=== PATIENT | male | born 1945 | race African-American/Black ===

== ENCOUNTER 2016-07-22 15:49 | Inpatient (IN) | payer OTHER ==
--- NOTE | ~2016-07-22 | OP ---
Record Of Operation [facility] [address] [place]. [address] NAME: PAULA ALVAREZ : 41 STATUS : ADM IN [facility]#: [id number] AGE: 71 ADM/REG DATE : 07/22/16 MR#: [id number] REPORT SERV DATE: 07/23/16 DICTATED BY: SHANIQUA MARQUEZ III DATE: 07/23/16 REPORT STATUS : Draft TRANSCRIBED BY: MODL DATE: 07/23/16 DATE OF PROCEDURE: 07/23/2016 PREOPERATIVE DIAGNOSIS: Retrocecal appendicitis. POSTOPERATIVE DIAGNOSIS: Inflammatory mass of the cecum, possible malignancy versus subacute or chronic retrocecal appendicitis. PROCEDURE: Laparoscopy with mobilization of right colon, followed by open right colectomy with resection of terminal ileum and primary ileocolonic anastomosis. SURGEON: Shaniqua Marquez M.D. ANESTHESIA: General with intubation. COMPLICATIONS: None. ESTIMATED BLOOD LOSS: 25 mL. SPECIMENS: Distal ileum and proximal to mid right colon including appendix. DRAINS: Freeland in subcutaneous tissue. LAP AND SPONGE COUNT: Correct x3. BRIEF HISTORY: This 71-year-old male had been admitted to the hospital emergently with a radiographic evidence for retrocecal appendicitis. The patient's symptoms were not completely typical in that his symptoms have been ongoing for one week. His pain was primarily in the flank. Based on the radiographic findings, it was felt that laparoscopic appendectomy, possible laparotomy, was indicated. This procedure, the risks, benefits, and alternatives, including but not limited to the risk for bleeding, infection, enterotomy, injury to abdominal structure, postop small bowel obstruction, ileus, incisional hernia, dehiscence, leakage or bleeding from the appendiceal stump requiring reoperation, ureteral injury, possible need for laparotomy, and unforeseen complications including deep venous thrombosis, pulmonary embolus, myocardial infarction, stroke, pneumonia, and , were fully and completely explained to the patient at length prior to surgery. The fact that this was a major operation with risk for major morbidity and mortality was explained as well as expected recovery with both open and laparoscopic procedures. The patient had questions, which were answered. He fully understood the risks and agreed to surgery as planned. FINDINGS: The patient had an inflammatory process involving the distal 2/3 of the appendix which was densely adherent to the lateral side wall and posterior wall of the cecum. There was inflammatory mass or hard mass associated with this process making the appendix inseparable from the colon. This was of concern clinically for possible malignancy. Based on this intraoperatively, it was decided to proceed with a partial right colectomy. This could not be done laparoscopically because of dense adhesions between the colon and the Record Of Operation [facility] [address] [facility]. [address] NAME: PAULA ALVAREZ : 41 STATUS : ADM IN PAT#: [id number] AGE: 71 ADM/REG DATE : 07/22/16 MR#: [id number] REPORT SERV DATE: 07/23/16 DICTATED BY: SHANIQUA MARQUEZ III DATE: 07/23/16 REPORT STATUS : Draft TRANSCRIBED BY: MATTHEW DATE: 07/23/16 pelvic sidewall and retroperitoneum making the procedure extremely difficult and unsafe to perform laparoscopically. For this reason, mobilization of the right colon as much as possible to perform laparoscopically and the remainder of the procedure was completed through an open incision. The procedure was complicated and the length of procedure was increased by 100% for these reasons, and therefore modifier 22 was added to the procedure code. PROCEDURE IN DETAIL: After being appropriately identified and after discussing the risks of surgery with the patient again in the preoperative area, he was taken to the operating room and placed in the supine position on the operating room table. General anesthesia was administered. He was intubated without difficulty. The abdomen was prepped and draped sterilely in the usual fashion. After an appropriate "time-out" per JCAHO standards, a small transverse incision was made below the umbilicus. The skin and fascia on either sides were elevated with towel clips. A Veress needle was placed through the incision into the peritoneal cavity. Correct position of the needle in the peritoneal cavity was confirmed by hanging drop test. The abdominal cavity was then insufflated to about 13 mmHg of carbon dioxide. Correct position of air in the peritoneal cavity was confirmed by palpation. The Veress needle was replaced with a 12 mm trocar. The laparoscope was placed through this. A 5 mm trocar was then placed in the midline, midway between the umbilicus and xiphoid process, under direct vision with the laparoscope. Another 5 mm trocar was placed in the midline, just above the pubis, also under direct vision with the laparoscope. The patient was rotated slightly to his left. The right lower quadrant was identified. There was a severe inflammatory process centered around the cecum. There were dense adhesions of inflammatory nature and fibrous nature between the cecum and the lateral sidewall. There was no evidence for carcinomatosis, but there was clearly a phlegmon or mass centered around the cecum and continuing laterally and posteriorly. The appendix was identified but was densely adherent to the cecum. The appropriate instruments were placed through the trocars. Using sharp dissection, the peritoneal reflection to the right colon was divided along the line of Toldt from the cecum to the hepatic flexure. This was done very carefully. The inflammatory process was very hard around the cecum and there were dense adhesions between the cecum and the pelvic sidewall. Further mobilization as much as possible was done. The cecum was densely adherent to the retroperitoneum posteriorly. Because of the adhesions and attachment of the cecum posteriorly to the retroperitoneum, it was my judgment that it was not be safe to proceed laparoscopically. The entire area was markedly inflamed and thickened with marked distortion of the normal anatomy. I was very concerned about possible injury to the right ureter. For this reason, I felt that it would be safest to proceed through an open incision. The trocars were removed. A midline incision was then made from the navel to the pubis. The incision was continued through the subcutaneous tissue. Hemostasis was controlled with cautery. The incision was continued through the fascia. The abdominal cavity was entered. The above findings were confirmed. The right colon was further mobilized. There was an inflammatory mass or phlegmon involving the cecum and the appendix. They were densely adherent to one another. It was of concern Record Of Operation [address] [place]. [address] NAME: PAULA ALVAREZ : 41 STATUS : ADM IN PAT#: [id number] AGE: 71 ADM/REG DATE : 07/22/16 MR#: [id number] REPORT SERV DATE: 07/23/16 DICTATED BY: SHANIQUA MARQUEZ III DATE: 07/23/16 REPORT STATUS : Draft TRANSCRIBED BY: MODL DATE: 07/23/16 to me that this might represent a primary malignancy of the appendix or the cecum and therefore, partial right colectomy was required. We selected a point for division of terminal ileum several centimeters proximal to the ileocecal valve. A window was made in the mesentery of the ileum at this point and a LEATHA stapler was used about the ileum at this point. The mid right colon was then divided distal to the inflammatory mass. This was done using the LEATHA stapler. The mesentery to this portion of the right colon and terminal ileum was then divided using Harmonic scalpel, along the base of the mesentery. The terminal ileum and right colon was thus removed and sent to Pathology and interpreted as being consistent with a benign process. We then performed a [id number] anastomosis between the divided terminal ileum and distal right colon. This was performed by aligning the small bowel with antimesenteric border of the colon with interrupted 3-0 silk sutures. A small opening was then made in the antimesenteric border of the small bowel and corresponding antimesenteric border of the colon. A LEATHA stapler was placed through this and fired. The defect created by the stapler was then closed with a TA-60 stapler. This staple line was oversewn with interrupted 3-0 silk sutures. The "crotch" of the anastomosis was secured with 3-0 silk sutures. The mesenteric defect was closed with a running 3-0 silk suture. Upon completion of this, the anastomosis was widely patent to palpation. It was not twisted or kinked in any way. It was not under any tension. The right ureter was identified and noted to be intact and not injured. The right lower quadrant was irrigated copiously with saline. Hemostasis was assured. The anastomosis was reduced back in the abdominal cavity. The fascia of the incision was closed with a running looped #1 PDS suture. Subcutaneous tissue was closed with a running 3-0 chromic suture over a Freeland drain which was brought through the inferior aspect of incision. The skin incision were closed with running subcuticular 4-0 Monocryl stitches. Dressings were applied. Anesthesia was reversed. The patient was taken to the recovery room in stable condition. He tolerated the procedure well. He had no family here to discuss results of surgery. The patient will remain in the hospital for postoperative care. JUANA/MATTHEW Shaniqua Marquez III, M.D. / [id number] CC: Shaniqua Marquez III, M.D.
--- NOTE | ~2016-07-22 | HP ---
History And Physical [place] [id number] [place]. [address] NAME: PAULA FRAIRE : 41 STATUS : ADM IN [facility]#: [id number] AGE: 71 ADM/REG DATE : 07/22/16 MR#: [id number] REPORT SERV DATE: 07/23/16 DICTATED BY: SHANIQUA MARQUEZ III DATE: 07/23/16 REPORT STATUS : Draft TRANSCRIBED BY: MODRaphael DATE: 07/23/16 DATE OF ADMISSION: 07/22/2016 ADDENDUM: Mr. Fraire continues to complain primarily of right flank pain. His clinical exam is unchanged. The patient has radiographic evidence for possible retrocecal appendicitis. Although, his clinical exam is atypical for appendicitis, his radiographic finding is of concern. Based on this, I feel the patient has sufficient evidence to proceed with laparoscopic appendectomy, possible laparotomy. We will schedule this to be done today for him. This procedure, i.e. laparoscopic appendectomy, possible laparotomy, the risks, benefits, and alternatives, including but not limited to the risk for bleeding, infection, enterotomy, injury to any abdominal structure, postop small bowel obstruction, ileus, incisional hernia, dehiscence, ureteral injury, appendiceal stump leak or bleed requiring reoperation, possible need for laparotomy, especially in a situation retrocecal appendicitis and unforeseen complications including deep venous thrombosis, pulmonary embolus, myocardial infarction, stroke, pneumonia, and have been explained to the patient. His questions have been answered. He understands the risks and agrees to the surgery as planned. JUANA/MATTHEW Shaniqua Marquez III, M.D. / [id number] CC: Shaniqua Marquez III, M.D.
--- NOTE | ~2016-07-22 | OP ---
Record Of Operation [facility] [address] [place]. [address] NAME: PAULA ALVAREZ : 41 STATUS : ADM IN [facility]#: [id number] AGE: 71 ADM/REG DATE : 07/22/16 MR#: [id number] REPORT SERV DATE: 07/28/16 DICTATED BY: GABRIEL GONZALEZ DATE: 07/28/16 REPORT STATUS : Draft TRANSCRIBED BY: MODL DATE: 07/28/16 DATE OF PROCEDURE: DIAGNOSIS: Cardiac arrest. PROCEDURE: Endotracheal intubation. DESCRIPTION: Code blue in process. During a pulse check without sedation, I took a no. 8 ET tube and a MAC 3 blade and was able to get a grade one view of vocal cords and placed an endotracheal tube. Got good color change on the CO2 detector and bilateral breath sounds and mist in the ET tube. No complications. No blood loss. CEP/MODL Gabriel Gonzalez DO / [id number] CC: Abdirahman Zamorano III, M.D.
--- NOTE | ~2016-07-22 | HP ---
History And Physical [place] [address] [facility] [place]. [address] NAME: PAULA ALVAREZ : 41 STATUS : ADM IN [facility]#: [id number] AGE: 71 ADM/REG DATE : 07/22/16 MR#: [id number] REPORT SERV DATE: 07/23/16 DICTATED BY: SHANIQUA MARQUEZ III DATE: 07/22/16 REPORT STATUS : Draft TRANSCRIBED BY: MODRaphael DATE: 07/22/16 DATE OF ADMISSION: 07/22/2016 HISTORY OF PRESENT ILLNESS: This 71-year-old male who was admitted to the hospital emergently with right flank pain and abdominal pain. The patient complains of a one-week history of vague illness consisting of right flank pain and lower abdominal pain. The patient states that the pain is worse when he sits up. The patient has had no nausea or vomiting. He has had no fever or chills. The patient states that the symptoms began at least one week ago. He has had some mild diarrhea. He has no prior history of similar symptoms. The patient presented to the emergency room and a CT scan of the abdomen and pelvis was performed, which suggested possible appendicitis. The patient has a remote history of gastric lymphoma. This apparently was treated with chemotherapy only many years ago. His history is somewhat vague regarding this. PAST MEDICAL HISTORY: 1. History of gastric lymphoma as above. 2. History of alcohol abuse with the patient drinking several pints daily. 3. History of tobacco abuse. FAMILY HISTORY: Unremarkable. REVIEW OF SYSTEMS: The patient complains of a low-grade fever and coughing. His pain is primarily in the right flank. ALLERGIES: NONE. MEDICATIONS: None regularly. PHYSICAL EXAMINATION: GENERAL: This is a male who appears comfortable and in absolutely no discomfort. He is alert and oriented x3. VITAL SIGNS: Blood pressure 114/67, temperature 98.3, and pulse 78. HEENT: Unremarkable. Cranial nerves II through XII are normal. LUNGS: Clear. CARDIAC: Normal. ABDOMEN: Soft and nontender. No guarding. No peritoneal signs. Normal bowel sounds. Flanks are normal with no point tenderness. EXTREMITIES: Normal without edema. LABORATORY DATA: White blood cell count is completely normal at 10.0. Hematocrit is normal. Electrolytes are normal. Glucose normal. Liver enzymes are normal except for slight elevation of alkaline phosphatase at 160. CT scan of the abdomen and pelvis, which I have reviewed shows a thickened appearance of the distal gastric body and antrum, possibly due to History And Physical [address] [place]. [address] NAME: PAULA ALVAREZ : 41 STATUS : ADM IN PAT#: [id number] AGE: 71 ADM/REG DATE : 07/22/16 MR#: [id number] REPORT SERV DATE: 07/23/16 DICTATED BY: SHANIQUA MARQUEZ III DATE: 07/22/16 REPORT STATUS : Draft TRANSCRIBED BY: MATTHEW DATE: 07/22/16 under distention, but no definite mass seen. There is noted to be a thickened tubular structure in the retrocecal region in the right pelvis, 11 mm in size with infiltrations, concerning for thickened inflamed appendix. ASSESSMENT: 1. A 71-year-old male with one-week history of right flank pain and abdominal pain, possible atypical appendicitis. 2. Remote history of gastric lymphoma. 3. History of alcohol abuse. PLAN: The patient is stable at this time with no evidence for peritonitis clinically. His white blood cell count is normal. The patient's symptoms are somewhat inconsistent with acute appendicitis based on normal clinical exam and normal white blood cell count with an illness, which has been ongoing for one week. The patient will be admitted to the hospital, started on parenteral fluids, bowel rest, and antibiotics empirically. I will repeat the patient's clinical exam tomorrow. Appendectomy may be required depending on the patient's clinical course. Again, I have explained to the patient that he has radiographic evidence for possible appendicitis, but clinically his exam does not support this. This plan has been explained to the patient. His questions have been answered. He understands and agrees to this plan. JUANA/MATTHEW Shaniqua Marquez III, M.D. / [id number] CC: Shaniqua Marquez III, M.D.
--- NOTE | ~2016-07-22 | DS ---
Discharge Summary [facility] [address] . [address] NAME: PAULA ALVAREZ : 41 STATUS : DIS IN PAT#: [id number] AGE: 71 ADM/REG DATE : 07/22/16 MR#: [id number] REPORT SERV DATE: 08/18/16 DICTATED BY: SHANIQUA MARQUEZ III DATE: 08/17/16 REPORT STATUS : Draft TRANSCRIBED BY: MATTHEW DATE: 08/17/16 Data Collection from hospitalization DISCHARGE DIAGNOSES: 1. Inflammatory mass of the cecum, possible malignancy versus subacute or chronic retrocecal appendicitis. 2. Tobacco and alcohol abuse. 3. History of gastric lymphoma. 4. Hepatitis C. 5. Tobacco use. 6. Chronic obstructive pulmonary disease. CONSULTATION: Dr. Gabriel Gonzalez. PROCEDURES PERFORMED: 1. Laparoscopy with mobilization of right colon, followed by open right colectomy with resection of terminal ileum and primary ileocolonic anastomosis, 07/23/2016. 2. Endotracheal intubation, 07/28/2016. 3. CT scan of the abdomen and pelvis with contrast, 07/22/2016. 4. GI bleeding study, 07/28/2016. PATHOLOGY: Right colon resection, including terminal ileum and appendix-acute and chronic appendicitis with extensive adhesions to cecum, status of margins-free, no malignancy or dysplasia. Mesenteric lymph nodes (8)-no specific microscopic abnormality. DISCHARGE MEDICATIONS: Percocet 7.5/325 one tablet three times a day as instructed. CONDITION AT DISCHARGE: Stable. DISPOSITION: The patient was discharged to [facility] on a mechanical soft diet with activities as instructed. He would follow up with me, 08/12/2016 and follow up with his primary care provider as needed. HOSPITAL COURSE: This is a 71-year-old man, who presented to the hospital emergently with right flank pain and abdominal pain. He had complained of a one-week history of vague illness and consisting of right flank pain and lower abdominal pain. The patient said that the pain was worse when he sits up. The patient had no nausea or vomiting. He had had no fevers or chills. The patient said that the symptoms began at least one week prior to this admission. He had had some mild diarrhea. He had no prior history of similar symptoms. He presented to the emergency room and a CT scan of the abdomen and pelvis suggested possible appendicitis. The patient has a history of gastric lymphoma. This apparently was treated with chemotherapy many years ago. His history was somewhat vague regarding this. White blood cell count was 10. Electrolytes were normal. Liver enzymes were normal, except for slight elevation of alkaline phosphatase at 160. Glucose was normal. The patient was felt to be stable at this time with no evidence for peritonitis clinically. His symptoms were somewhat inconsistent with acute appendicitis based on normal clinical exam and normal white blood cell count with an illness, which had been ongoing for about one week. He was admitted to the hospital at this time for further evaluation and treatment. Discharge Summary [place] [id number] [address] NAME: PAULA ALVAREZ : 41 STATUS : DIS IN [facility]#: [id number] AGE: 71 ADM/REG DATE : 07/22/16 MR#: [id number] REPORT SERV DATE: 08/18/16 DICTATED BY: SHANIQUA MARQUEZ III DATE: 08/17/16 REPORT STATUS : Draft TRANSCRIBED BY: MATTHEW DATE: 08/17/16 Upon admission, empiric antibiotics were started. He was placed on bowel rest. Parental fluids were started. It was felt that an appendectomy may be required depending on the patient's clinical course. It was explained to the patient that he had radiographic evidence for possible appendicitis, but clinically, his exam did not support this. The following day, it was felt that based on the radiographic findings that laparoscopic appendectomy and possible laparotomy was indicated. He was taken to the operating room, where he underwent the above-mentioned procedure. He tolerated this well and there were no complications. On postop day one, he had no new complaints. He was alert and comfortable. He was afebrile. Clear liquids were started. The Truj[place] catheter was removed. On the , he said that he was feeling well. He was tolerating clear liquids. He remained afebrile. Full liquids were started. He was evaluated by Physical Therapy. Over the next couple of days, he did have some incisional pain. He also had some constipation. He continued to tolerate liquids. Dulcolax was given. On 07/27/2016, he had some dizziness and fatigue. His blood pressure had decreased. He had three bright red blood stools. His H and H had decreased. He was transfused. O2 saturation was 98% on room air. On 07/28/2016, he was seen by Dr. Gabriel Gonzalez. Apparently, the patient was getting up with the nurse's assistance to the bedside commode and developed some bleeding from his bottom in the bedside commode. A code blue was called in the middle of the night. Initial rhythm was pulseless electrical activity arrest. Approximately, 15 minutes of CPR was provided before the patient had return of spontaneous circulation. Intubation was performed during the actual code. He was transferred to the MICU on the ventilator. He started waking up and moving his extremities. He was sedated with propofol. Cardiac enzymes were going to be checked as well as 2D echocardiogram. A PICC line was inserted. On 07/29/2016, he was still intubated. He had no further blood per rectum. Supportive care continued. Protonix was increased. SCDs remained in place. He was extubated. On the , Trujillo catheter had been removed. He was started on full liquids. Leukocytosis was resolving. His diet was advanced. He was transferred to the floor. On the , he had no new complaints. He had no nausea or vomiting. He had no further blood per rectum. Over the next couple of days, he continued to feel well. He wanted to go home. Discharge planning was performed. He did have some abdominal pain. He did have a bowel movement. On 08/05/2016, his incisions were healing well. Discharge instructions were given. Due to his improved and stable condition, he was discharged to [facility] with the above- stated instructions. Information collected by: Zully Hampton I submit the above information as my discharge summary. NAT/MATTHEW Shaniqua Marquez III, M.D. / [id number] Discharge Summary [address] [address] NAME: PAULA ALVAREZ : 41 STATUS : DIS IN [facility]#: [id number] AGE: 71 ADM/REG DATE : 07/22/16 MR#: [id number] REPORT SERV DATE: 08/18/16 DICTATED BY: SHANIQUA MARQUEZ III DATE: 08/17/16 REPORT STATUS : Draft TRANSCRIBED BY: MODL DATE: 08/17/16 CC: Shaniqua Marquez III, M.D. [facility]
--- NOTE | ~2016-07-22 | CN ---
Consultation Report [facility] [address] [place]. [address] NAME: PAULA ALVAREZ : 41 STATUS : ADM IN [facility]#: [id number] AGE: 71 ADM/REG DATE : 07/22/16 MR#: [id number] REPORT SERV DATE: 07/28/16 DICTATED BY: GABRIEL GONZALEZ DATE: 07/28/16 REPORT STATUS : Draft TRANSCRIBED BY: MODL DATE: 07/28/16 DATE OF CONSULTATION: A 71-year-old male, admitted on 07/22/2016 because of right abdominal flank pain. Turned out to be appendicitis and he was taken back to the operating room on 07/23/2016 for a laparoscopic appendectomy and a right hemicolectomy. Surgery was uneventful and he was having routine postoperative care. He was having some bleeding problems the day before and then last night. A code blue was called in the middle of the night, 07/28/2016. Initial rhythm was pulseless electrical activity arrest. Approximately, 15 minutes of CPR was provided to the patient before he got return of spontaneous circulation. I performed intubation during the actual code, which is dictated under a separate report. Dr. Zamorano happened to be in the room when I arrived for the code blue. This was his patient. He was just starting daytime rounds. Apparently, the nurse was getting the patient up to the bedside commode, and the patient was having some bleeding from his bottom in the bedside commode when he went out. His hemoglobin the day prior was 8.3, but had been trending down the previous day or two. His i-STAT shows ABG was okay, but his hematocrit was very low at 15 and his hemoglobin was unregistrable. I ordered 1 unit of O- negative blood to be transfused immediately. We obtained the EKG in the room on the floor, which was on . We suggested a new left bundle branch block. I called Cardiology and discussed with Dr. Tsang by phone and explained the situation. If this was a new coronary event causing him to go out, he would not be a very good left heart catheterization candidate given his bleeding. So, we both opted to treat him medically and they would consult in the morning. The patient was transferred to the MICU bed 4 on the ventilator. He started waking up and moving all extremities. He is sedated with propofol. REVIEW OF SYSTEMS: Unable to be obtained. PAST MEDICAL HISTORY: Hepatitis C, COPD, gastric cancer, medical port for chemotherapy in the past. ALLERGIES: NO KNOWN DRUG ALLERGIES. MEDICATIONS: Reviewed. FAMILY HISTORY: Unknown. PHYSICAL EXAMINATION: VITAL SIGNS: Per nursing flow sheet. GENERAL: Critically ill, moving all extremities in the MICU. ENT: Normocephalic, atraumatic. Right pupil is reactive. Left pupil appears somewhat hazy, so I was not sure if he had some type of surgery in the past because I had hard time seeing his left pupil whether it is from abnormal reflection or that is just how it looks in him, I am not clear at this point. NECK: Trachea midline. No palpable lymph nodes. Consultation Report [address] [place]. [address] NAME: PAULA ALVAREZ : 41 STATUS : ADM IN [facility]#: [id number] AGE: 71 ADM/REG DATE : 07/22/16 MR#: [id number] REPORT SERV DATE: 07/28/16 DICTATED BY: GABRIEL GONZALEZ DATE: 07/28/16 REPORT STATUS : Draft TRANSCRIBED BY: MATTHEW DATE: 07/28/16 HEART: Tachycardic, regular. LUNGS: Clear anteriorly. GI: Postsurgical dressing. Abdomen is soft. : [place] catheter is being placed. EXTREMITIES: No edema or cyanosis. NEURO: Moves all extremities voluntarily by the time I am going to move him to the ICU. LABORATORY DATA: Reviewed in the chart. ASSESSMENT AND PLAN: 1. Pulseless electrical activity, cardiac arrest. 2. Gastrointestinal bleed-acute. 3. New left bundle branch block-possible acute myocardial infarction. 4. Status post right hemicolectomy and appendectomy. 5. Acute blood loss anemia. 6. Chronic obstructive pulmonary disease. 7. Ventilator management with settings placed in chart. We will recheck ABG in an hour. Start propofol for sedation. Cardiology consult case was discussed with Dr. Tsang by phone. I also discussed the case with Dr. Zamorano at the bedside. We will get a 2D echocardiogram. Check cardiac enzymes. Also, other labs were ordered. 1 unit of O- negative blood was ordered until we get a confirmation on the rest of the blood work. Forty five minutes of critical care time. CEP/MODL Gabriel Gonzalez DO / [id number] CC: Abdirahman Zamorano III, M.D.
[~2016-07-22 15:49] MED LIST: ASAB PO; FERROUS SULF325 M1 PO; IBUPROFEN; MONODOX100 MG PO; MUCUS RELIEF OR; PR25 PO; PRIN20 PO; PT DENIES MEDS; REGLAN10 MG OR; SENN PO; TEMAZEPAM15 MG OR; [UNRECOGNIZED DRUG - OTHER]
[2016-07-22 16:16] LABS: BASOPHILS 0.4 %; BASOPHILS ABSOLUTE 0.04 10/3/uL (0.0-0.16); EOSINOPHILS 2.4 %; EOSINOPHILS ABSOLUTE 0.24 10/3/uL (0.0-0.53); HEMATOCRIT 38.5 % (40.0-51.0); HEMOGLOBIN 13.3 g/dL (13.6-17.8); IMMATURE GRANULOCYTES 0.2 %; IMMATURE GRANULOCYTES ABSOLUTE 0.02 10/3/uL (0.0-0.11); LYMPHOCYTES 31.2 %; LYMPHOCYTES ABSOLUTE 3.12 10/3/uL (0.67-4.30); MEAN CORPUS HGB CONC 34.5 g/dL (32.0-36.0); MEAN CORPUSCULAR HEMOGLOB 29.7 pg (26.0-34.0); MEAN CORPUSCULAR VOLUME 85.9 fL (80-100); MEAN PLATELET VOLUME 10.8 fL (9.2-13.0); MONOCYTES 8.3 %; MONOCYTES ABSOLUTE 0.83 10/3/uL (0.21-1.20); NEUTROPHILS 57.5 %; NEUTROPHILS ABSOLUTE 5.76 10/3/uL (2.02-8.40); RBC DISTRIBUTION WIDTH 16.2 % (12.0-16.0); RED CELL COUNT 4.48 10/6/uL (4.7-6.1)
[2016-07-22 16:21] LABS: ER CBC TAT 0 Hrs 11 Mins; MANUAL DIFF NO %; PLATELET COUNT 334 10/3/uL (150-400)
[2016-07-22 16:30] LABS: A/G RATIO 0.8 (0.7-1.9); ALBUMIN 3.3 G/DL (3.5-5.0); BUN (BLOOD UREA NITROGEN) 11 MG/DL (6-23); CALCIUM, SERUM 9.5 MG/DL (8.5-10.4); CHLORIDE, SERUM 102 MMOL/L (96-112); CO2 (CARBON DIOXIDE) 29 MMOL/L (24-34); CREATININE 0.67 MG/DL (0.70-1.30); GFR AFRICAN AMERICAN 110 ML/MIN (>=60); GFR NON AFRICAN AMERICAN 95 ML/MIN (>=60); GLOBULIN 4.3 G/DL (2.5-4.1); POTASSIUM, SERUM 3.9 MMOL/L (3.5-5.3); SGOT(AST) 51 U/L (5-40); SGPT(ALT) 39 U/L (5-65); SODIUM, SERUM 139 MMOL/L (135-148); TOTAL BILIRUBIN 0.7 MG/DL (0-1.2); TOTAL PROTEIN 7.6 G/DL (6.0-8.5)
[2016-07-22 16:31] LABS: ALKALINE PHOSPHATASE 160 U/L (45-117); GLUCOSE, SERUM 108 MG/DL (60-99)
[2016-07-22 20:48] LABS: ASCORBIC ACID (UR NOT ORDER) NEG (NEG); BILIRUBIN, URINE NEGATIVE (NEG); ER URINALYSIS TAT 0 Hrs 08 Mins; KETONE, URINE TRACE MG/DL (NEG); LEUKOCYTE ESTERASE(NOT OR NEG (NEG); NITRITE (URINE) NEG (NEG); WBC (NOT ORDERED) (RFLEX) < 1 (0-5)
[2016-07-22] MEDS ORDERED: *DENIES (20:54)
[2016-07-23 07:01] LABS: BASOPHILS 0.3 %; BASOPHILS ABSOLUTE 0.03 10/3/uL (0.0-0.16); EOSINOPHILS 2.5 %; EOSINOPHILS ABSOLUTE 0.24 10/3/uL (0.0-0.53); HEMATOCRIT 34.9 % (40.0-51.0); HEMOGLOBIN 11.9 g/dL (13.6-17.8); IMMATURE GRANULOCYTES 0.2 %; IMMATURE GRANULOCYTES ABSOLUTE 0.02 10/3/uL (0.0-0.11); LYMPHOCYTES 35.6 %; LYMPHOCYTES ABSOLUTE 3.39 10/3/uL (0.67-4.30); MEAN CORPUS HGB CONC 34.1 g/dL (32.0-36.0); MEAN CORPUSCULAR HEMOGLOB 29.2 pg (26.0-34.0); MEAN CORPUSCULAR VOLUME 85.5 fL (80-100); MEAN PLATELET VOLUME 10.9 fL (9.2-13.0); MONOCYTES 8.9 %; MONOCYTES ABSOLUTE 0.85 10/3/uL (0.21-1.20); NEUTROPHILS 52.5 %; NEUTROPHILS ABSOLUTE 4.99 10/3/uL (2.02-8.40); PLATELET COUNT 306 10/3/uL (150-400); RBC DISTRIBUTION WIDTH 16.4 % (12.0-16.0); RED CELL COUNT 4.08 10/6/uL (4.7-6.1); WHITE BLOOD CELLS 9.5 10/3/uL (4.5-10.5)
[2016-07-23 07:02] LABS: MANUAL DIFF NO %
[2016-07-23 07:03] LABS: BUN (BLOOD UREA NITROGEN) 11 MG/DL (6-23); CALCIUM, SERUM 8.8 MG/DL (8.5-10.4); CHLORIDE, SERUM 108 MMOL/L (96-112); CO2 (CARBON DIOXIDE) 27 MMOL/L (24-34); CREATININE 0.85 MG/DL (0.70-1.30); GFR AFRICAN AMERICAN 100 ML/MIN (>=60); GFR NON AFRICAN AMERICAN 86 ML/MIN (>=60); GLUCOSE, SERUM 105 MG/DL (60-99); POTASSIUM, SERUM 3.7 MMOL/L (3.5-5.3); SODIUM, SERUM 142 MMOL/L (135-148)
[2016-07-23 15:57] LABS: CK-MB 2.2 NG/ML; CPK 129 U/L (0-200); TROPONIN I <0.02 NG/ML (<0.05)
[2016-07-24 06:54] LABS: BASOPHILS 0.1 %; BASOPHILS ABSOLUTE 0.01 10/3/uL (0.0-0.16); EOSINOPHILS 0 %; HEMATOCRIT 36.2 % (40.0-51.0); IMMATURE GRANULOCYTES 0.2 %; IMMATURE GRANULOCYTES ABSOLUTE 0.02 10/3/uL (0.0-0.11); LYMPHOCYTES ABSOLUTE 2.53 10/3/uL (0.67-4.30); MEAN CORPUS HGB CONC 33.1 g/dL (32.0-36.0); MEAN CORPUSCULAR HEMOGLOB 28.9 pg (26.0-34.0); MEAN CORPUSCULAR VOLUME 87.2 fL (80-100); MEAN PLATELET VOLUME 11.5 fL (9.2-13.0); MONOCYTES 8.2 %; MONOCYTES ABSOLUTE 0.94 10/3/uL (0.21-1.20); NEUTROPHILS 69.5 %; NEUTROPHILS ABSOLUTE 8.02 10/3/uL (2.02-8.40); PLATELET COUNT 317 10/3/uL (150-400); RBC DISTRIBUTION WIDTH 16.1 % (12.0-16.0); RED CELL COUNT 4.15 10/6/uL (4.7-6.1); WHITE BLOOD CELLS 11.5 10/3/uL (4.5-10.5)
[2016-07-24 07:00] LABS: BUN (BLOOD UREA NITROGEN) 11 MG/DL (6-23); CALCIUM, SERUM 8.6 MG/DL (8.5-10.4); CHLORIDE, SERUM 104 MMOL/L (96-112); CO2 (CARBON DIOXIDE) 26 MMOL/L (24-34); CREATININE 0.96 MG/DL (0.70-1.30); GFR AFRICAN AMERICAN 91 ML/MIN (>=60); GFR NON AFRICAN AMERICAN 78 ML/MIN (>=60); MANUAL DIFF NO %; POTASSIUM, SERUM 4.4 MMOL/L (3.5-5.3); SODIUM, SERUM 139 MMOL/L (135-148)
[2016-07-24 07:06] LABS: GLUCOSE, SERUM 206 MG/DL (60-99)
[2016-07-25 07:52] LABS: BASOPHILS 0.2 %; BASOPHILS ABSOLUTE 0.02 10/3/uL (0.0-0.16); EOSINOPHILS ABSOLUTE 0.09 10/3/uL (0.0-0.53); HEMATOCRIT 32.8 % (40.0-51.0); HEMOGLOBIN 11.1 g/dL (13.6-17.8); IMMATURE GRANULOCYTES 0.1 %; IMMATURE GRANULOCYTES ABSOLUTE 0.01 10/3/uL (0.0-0.11); LYMPHOCYTES 37.6 %; LYMPHOCYTES ABSOLUTE 3.52 10/3/uL (0.67-4.30); MEAN CORPUS HGB CONC 33.8 g/dL (32.0-36.0); MEAN CORPUSCULAR HEMOGLOB 29.7 pg (26.0-34.0); MEAN CORPUSCULAR VOLUME 87.7 fL (80-100); MEAN PLATELET VOLUME 11.1 fL (9.2-13.0); MONOCYTES 8.8 %; MONOCYTES ABSOLUTE 0.82 10/3/uL (0.21-1.20); NEUTROPHILS 52.3 %; NEUTROPHILS ABSOLUTE 4.89 10/3/uL (2.02-8.40); PLATELET COUNT 248 10/3/uL (150-400); RBC DISTRIBUTION WIDTH 15.9 % (12.0-16.0); RED CELL COUNT 3.74 10/6/uL (4.7-6.1); WHITE BLOOD CELLS 9.4 10/3/uL (4.5-10.5)
[2016-07-25 07:55] LABS: MANUAL DIFF NO %
[2016-07-25 08:06] LABS: BUN (BLOOD UREA NITROGEN) 6 MG/DL (6-23); CALCIUM, SERUM 8.5 MG/DL (8.5-10.4); CHLORIDE, SERUM 108 MMOL/L (96-112); CO2 (CARBON DIOXIDE) 27 MMOL/L (24-34); CREATININE 0.67 MG/DL (0.70-1.30); GFR AFRICAN AMERICAN 110 ML/MIN (>=60); GFR NON AFRICAN AMERICAN 95 ML/MIN (>=60); GLUCOSE, SERUM 106 MG/DL (60-99); SODIUM, SERUM 141 MMOL/L (135-148)
[2016-07-26 07:19] LABS: BASOPHILS 0.4 %; BASOPHILS ABSOLUTE 0.03 10/3/uL (0.0-0.16); EOSINOPHILS ABSOLUTE 0.22 10/3/uL (0.0-0.53); HEMATOCRIT 32.6 % (40.0-51.0); IMMATURE GRANULOCYTES 0.3 %; IMMATURE GRANULOCYTES ABSOLUTE 0.02 10/3/uL (0.0-0.11); LYMPHOCYTES 29.2 %; LYMPHOCYTES ABSOLUTE 2.14 10/3/uL (0.67-4.30); MEAN CORPUS HGB CONC 33.7 g/dL (32.0-36.0); MEAN CORPUSCULAR HEMOGLOB 29.3 pg (26.0-34.0); MEAN CORPUSCULAR VOLUME 86.9 fL (80-100); MEAN PLATELET VOLUME 10.8 fL (9.2-13.0); MONOCYTES 9.5 %; NEUTROPHILS 57.6 %; NEUTROPHILS ABSOLUTE 4.23 10/3/uL (2.02-8.40); PLATELET COUNT 225 10/3/uL (150-400); RBC DISTRIBUTION WIDTH 15.7 % (12.0-16.0); RED CELL COUNT 3.75 10/6/uL (4.7-6.1); WHITE BLOOD CELLS 7.3 10/3/uL (4.5-10.5)
[2016-07-26 07:24] LABS: BUN (BLOOD UREA NITROGEN) 5 MG/DL (6-23); CALCIUM, SERUM 9.1 MG/DL (8.5-10.4); CHLORIDE, SERUM 108 MMOL/L (96-112); CO2 (CARBON DIOXIDE) 24 MMOL/L (24-34); CREATININE 0.55 MG/DL (0.70-1.30); GFR AFRICAN AMERICAN 120 ML/MIN (>=60); GFR NON AFRICAN AMERICAN 103 ML/MIN (>=60); GLUCOSE, SERUM 110 MG/DL (60-99); POTASSIUM, SERUM 4.1 MMOL/L (3.5-5.3); SODIUM, SERUM 141 MMOL/L (135-148)
[2016-07-26 07:31] LABS: MANUAL DIFF NO %
[2016-07-27 06:40] LABS: BASOPHILS 0.6 %; BASOPHILS ABSOLUTE 0.04 10/3/uL (0.0-0.16); EOSINOPHILS 7.5 %; EOSINOPHILS ABSOLUTE 0.54 10/3/uL (0.0-0.53); HEMOGLOBIN 9.7 g/dL (13.6-17.8); IMMATURE GRANULOCYTES 0.1 %; IMMATURE GRANULOCYTES ABSOLUTE 0.01 10/3/uL (0.0-0.11); LYMPHOCYTES 32.1 %; MEAN CORPUS HGB CONC 34.3 g/dL (32.0-36.0); MEAN CORPUSCULAR HEMOGLOB 29.4 pg (26.0-34.0); MEAN CORPUSCULAR VOLUME 85.8 fL (80-100); MEAN PLATELET VOLUME 10.6 fL (9.2-13.0); MONOCYTES 10.5 %; MONOCYTES ABSOLUTE 0.75 10/3/uL (0.21-1.20); NEUTROPHILS 49.2 %; NEUTROPHILS ABSOLUTE 3.53 10/3/uL (2.02-8.40); PLATELET COUNT 221 10/3/uL (150-400); RBC DISTRIBUTION WIDTH 15.7 % (12.0-16.0); WHITE BLOOD CELLS 7.2 10/3/uL (4.5-10.5)
[2016-07-27 06:54] LABS: BUN (BLOOD UREA NITROGEN) 7 MG/DL (6-23); CALCIUM, SERUM 8.9 MG/DL (8.5-10.4); CHLORIDE, SERUM 109 MMOL/L (96-112); CO2 (CARBON DIOXIDE) 25 MMOL/L (24-34); CREATININE 0.63 MG/DL (0.70-1.30); GFR AFRICAN AMERICAN 113 ML/MIN (>=60); GFR NON AFRICAN AMERICAN 98 ML/MIN (>=60); GLUCOSE, SERUM 109 MG/DL (60-99); SODIUM, SERUM 142 MMOL/L (135-148)
[2016-07-27 07:07] LABS: HEMATOCRIT 28.3 % (40.0-51.0); MANUAL DIFF NO %
[2016-07-27 10:29] LABS: HEMOGLOBIN 8.5 g/dL (13.6-17.8)
[2016-07-27 10:30] LABS: HEMATOCRIT 24.8 % (40.0-51.0)
[2016-07-27 22:25] LABS: HEMATOCRIT 24.4 % (40.0-51.0); HEMOGLOBIN 8.3 g/dL (13.6-17.8)
[2016-07-28 06:16] LABS: HEMATOCRIT 10.2 % (40.0-51.0); HEMOGLOBIN 3.4 g/dL (13.6-17.8); MEAN CORPUS HGB CONC 33.3 g/dL (32.0-36.0); MEAN CORPUSCULAR HEMOGLOB 29.8 pg (26.0-34.0); MEAN CORPUSCULAR VOLUME 89.5 fL (80-100); MEAN PLATELET VOLUME 11.6 fL (9.2-13.0); PLATELET COUNT 102 10/3/uL (150-400); RBC DISTRIBUTION WIDTH 15.5 % (12.0-16.0); RED CELL COUNT 1.14 10/6/uL (4.7-6.1); WHITE BLOOD CELLS 15.4 10/3/uL (4.5-10.5)
[2016-07-28 06:18] LABS: MANUAL DIFF YES %
[2016-07-28 06:23] LABS: INTERNATIONAL NORMAL RATI 1.7 UNITS (-); PARTIAL THROMBO TIME 40.5 SEC (22.5-37.2); PROTIME (NOT ORD) 19.5 SEC (12.0-14.5)
[2016-07-28 06:28] LABS: ALBUMIN 1.9 G/DL (3.5-5.0); ALKALINE PHOSPHATASE 98 U/L (45-117); BUN (BLOOD UREA NITROGEN) 15 MG/DL (6-23); CHLORIDE, SERUM 109 MMOL/L (96-112); CO2 (CARBON DIOXIDE) 19 MMOL/L (24-34); CREATININE 1.63 MG/DL (0.70-1.30); DIRECT BILIRUBIN 0.2 MG/DL (0.0-0.4); GFR AFRICAN AMERICAN 48 ML/MIN (>=60); GFR NON AFRICAN AMERICAN 41 ML/MIN (>=60); GLUCOSE, SERUM 176 MG/DL (60-99); INDIRECT BILIRUBIN(NOT ORDER) 0.9 MG/DL (0.1-0.9); PHOSPHORUS, SERUM 5.2 MG/DL (2.5-4.5); POTASSIUM, SERUM 4.4 MMOL/L (3.5-5.3); SGOT(AST) 60 U/L (5-40); SGPT(ALT) 35 U/L (5-65); SODIUM, SERUM 146 MMOL/L (135-148); TOTAL BILIRUBIN 1.1 MG/DL (0-1.2); TOTAL PROTEIN 4.3 G/DL (6.0-8.5); TROPONIN I 0.03 NG/ML (<0.05)
[2016-07-28 06:40] LABS: BAND NEUTROPHILS 2 %; EOSINOPHILS 2 %; EOSINOPHILS ABSOLUTE (CALC) 0.31 10/3/uL (0.0-0.53); LYMPHOCYTES 62 %; LYMPHOCYTES ABSOLUTE (CALC) 9.55 10/3/uL (0.67-4.30); MONOCYTES 1 %; MONOCYTES ABSOLUTE (CALC) 0.15 10/3/uL (0.21-1.20); NEUTROPHILS ABSOLUTE (CALC) 5.39 10/3/uL (2.02-8.40); PLATELET ESTIMATE SLT DEC (ADEQUATE); POLYCHROMASIA 1+ (2-5/OIF) (0-1/OIF); SEGMENTED NEUTROPHIL (0) 33 %; TOTAL NUCLEATED CELLS 100
[2016-07-28 06:41] LABS: SMUDGE CELLS OCC
[2016-07-28 07:11] LABS: PROCALCITONIN 0.83 ng/mL (<0.5)
[2016-07-28 07:41] LABS: BE (BASE EXCESS) -6.5 MEQ/L (0 +/- 2.5); CARBOXYHEMOGLOBIN 0.6 % (0-3); HCO3 (ACTUAL BICARBONATE) 18.5 MEQ/L (23-27); HEMOBLOGIN CONTENT 4.4 G/DL (14-18); INSTRUMENT SERIAL # 8083; MODE CMV; O2 CONTENT 7.6 VOL% (18-24); OPERATOR ID 35188; PCO2 (CO2 TENSION) 34 MMHG (35-45); PO2 (O2 TENSION) 507 MMHG (79-93); SAMPLE Arterial; TIDAL VOLUME 500 ML; pH 7.36 (7.37-7.43)
[2016-07-28 12:14] LABS: HEMATOCRIT 31.4 % (40.0-51.0); HEMOGLOBIN 11.1 g/dL (13.6-17.8)
[2016-07-28 13:17] LABS: BUN (BLOOD UREA NITROGEN) 16 MG/DL (6-23); CALCIUM, SERUM 8.2 MG/DL (8.5-10.4); CHLORIDE, SERUM 110 MMOL/L (96-112); CK-MB 18.7 NG/ML; CPK 1032 U/L (0-200); CREATININE 1.49 MG/DL (0.70-1.30); GFR AFRICAN AMERICAN 53 ML/MIN (>=60); GFR NON AFRICAN AMERICAN 46 ML/MIN (>=60); SODIUM, SERUM 143 MMOL/L (135-148)
[2016-07-28 13:18] LABS: CKMB INDEX (NOT ORD) 1.8; CO2 (CARBON DIOXIDE) 26 MMOL/L (24-34); FOLATE 19.7 NG/ML (>5.2); GLUCOSE, SERUM 132 MG/DL (60-99); PHOSPHORUS, SERUM 2.7 MG/DL (2.5-4.5)
[2016-07-28 14:27] LABS: CK-MB 15.9 NG/ML; CKMB INDEX (NOT ORD) 1.7
[2016-07-28 14:28] LABS: TROPONIN I 0.64 NG/ML (<0.05)
[2016-07-28 16:16] LABS: HEMATOCRIT 30.4 % (40.0-51.0); HEMOGLOBIN 10.9 g/dL (13.6-17.8)
[2016-07-28 23:36] LABS: HEMATOCRIT 29.6 % (40.0-51.0); HEMOGLOBIN 10.6 g/dL (13.6-17.8)
[2016-07-28 23:53] LABS: CK-MB 10.4 NG/ML
[2016-07-28 23:54] LABS: CKMB INDEX (NOT ORD) 1.4; TROPONIN I 0.61 NG/ML (<0.05)
[2016-07-29 03:18] LABS: BE (BASE EXCESS) 0.8 MEQ/L (0 +/- 2.5); HCO3 (ACTUAL BICARBONATE) 24.4 MEQ/L (23-27); HEMOBLOGIN CONTENT 10.4 G/DL (14-18); INSTRUMENT SERIAL # 8083; METHEMOGLOBIN 0.3 % (0-3); MODE CMV; O2 CONTENT 14.7 VOL% (18-24); OPERATOR ID 16469; PCO2 (CO2 TENSION) 35 MMHG (35-45); PO2 (O2 TENSION) 157 MMHG (79-93); SAMPLE Arterial; pH 7.46 (7.37-7.43)
[2016-07-29 03:19] LABS: ALLENS TEST Pos; TIDAL VOLUME 500 ML
[2016-07-29 06:04] LABS: HEMOGLOBIN 10.6 g/dL (13.6-17.8); MEAN CORPUSCULAR HEMOGLOB 30.3 pg (26.0-34.0); MEAN PLATELET VOLUME 11.2 fL (9.2-13.0); PLATELET COUNT 111 10/3/uL (150-400); RBC DISTRIBUTION WIDTH 15.4 % (12.0-16.0); WHITE BLOOD CELLS 15.9 10/3/uL (4.5-10.5)
[2016-07-29 06:12] LABS: MANUAL DIFF YES %; MEAN CORPUS HGB CONC 36.6 g/dL (32.0-36.0); MEAN CORPUSCULAR VOLUME 82.9 fL (80-100)
[2016-07-29 06:22] LABS: BUN (BLOOD UREA NITROGEN) 17 MG/DL (6-23); CHLORIDE, SERUM 111 MMOL/L (96-112); CK-MB 7.2 NG/ML; CO2 (CARBON DIOXIDE) 25 MMOL/L (24-34); CPK 689 U/L (0-200); CREATININE 1.76 MG/DL (0.70-1.30); GFR AFRICAN AMERICAN 43 ML/MIN (>=60); GFR NON AFRICAN AMERICAN 38 ML/MIN (>=60); GLUCOSE, SERUM 103 MG/DL (60-99); PHOSPHORUS, SERUM 3.2 MG/DL (2.5-4.5); POTASSIUM, SERUM 3.6 MMOL/L (3.5-5.3); SODIUM, SERUM 145 MMOL/L (135-148); TROPONIN I 0.42 NG/ML (<0.05)
[2016-07-29 06:24] LABS: BAND NEUTROPHILS 1 %; EOSINOPHILS 3 %; EOSINOPHILS ABSOLUTE (CALC) 0.48 10/3/uL (0.0-0.53); LYMPHOCYTES 11 %; LYMPHOCYTES ABSOLUTE (CALC) 1.75 10/3/uL (0.67-4.30); MONOCYTES 9 %; MONOCYTES ABSOLUTE (CALC) 1.43 10/3/uL (0.21-1.20); NEUTROPHILS ABSOLUTE (CALC) 12.24 10/3/uL (2.02-8.40); PLATELET ESTIMATE SLT DEC (ADEQUATE); SEGMENTED NEUTROPHIL (0) 76 %; TOTAL NUCLEATED CELLS 100
[2016-07-29 06:26] LABS: RBC MORPHOLOGY NORM (NORMAL)
[2016-07-29 10:47] LABS: HEMOGLOBIN 10.7 g/dL (13.6-17.8)
[2016-07-29 18:24] LABS: HEMATOCRIT 29.9 % (40.0-51.0); HEMOGLOBIN 10.3 g/dL (13.6-17.8)
[2016-07-30 00:19] LABS: HEMATOCRIT 27.9 % (40.0-51.0); HEMOGLOBIN 9.7 g/dL (13.6-17.8)
[2016-07-30 04:45] LABS: HEMATOCRIT 28.5 % (40.0-51.0); HEMOGLOBIN 9.9 g/dL (13.6-17.8); MEAN CORPUSCULAR HEMOGLOB 30.6 pg (26.0-34.0); MEAN PLATELET VOLUME 11.1 fL (9.2-13.0); PLATELET COUNT 118 10/3/uL (150-400); RBC DISTRIBUTION WIDTH 15.8 % (12.0-16.0); RED CELL COUNT 3.24 10/6/uL (4.7-6.1); WHITE BLOOD CELLS 11.7 10/3/uL (4.5-10.5)
[2016-07-30 04:48] LABS: MANUAL DIFF YES %; MEAN CORPUS HGB CONC 34.7 g/dL (32.0-36.0)
[2016-07-30 04:55] LABS: BUN (BLOOD UREA NITROGEN) 15 MG/DL (6-23); CALCIUM, SERUM 8.5 MG/DL (8.5-10.4); CHLORIDE, SERUM 113 MMOL/L (96-112); CO2 (CARBON DIOXIDE) 25 MMOL/L (24-34); CREATININE 1.48 MG/DL (0.70-1.30); GFR AFRICAN AMERICAN 54 ML/MIN (>=60); GFR NON AFRICAN AMERICAN 46 ML/MIN (>=60); GLUCOSE, SERUM 90 MG/DL (60-99); POTASSIUM, SERUM 3.6 MMOL/L (3.5-5.3); SODIUM, SERUM 146 MMOL/L (135-148)
[2016-07-30 05:46] LABS: EOSINOPHILS 4 %; EOSINOPHILS ABSOLUTE (CALC) 0.47 10/3/uL (0.0-0.53); LYMPHOCYTES 24 %; LYMPHOCYTES ABSOLUTE (CALC) 2.81 10/3/uL (0.67-4.30); MONOCYTES 5 %; MONOCYTES ABSOLUTE (CALC) 0.59 10/3/uL (0.21-1.20); NEUTROPHILS ABSOLUTE (CALC) 7.84 10/3/uL (2.02-8.40); PLATELET ESTIMATE DEC (ADEQUATE); RBC MORPHOLOGY NORM (NORMAL); SEGMENTED NEUTROPHIL (0) 67 %; TOTAL NUCLEATED CELLS 100
[2016-07-31 04:42] LABS: HEMATOCRIT 31.7 % (40.0-51.0); HEMOGLOBIN 10.7 g/dL (13.6-17.8); MANUAL DIFF YES %; MEAN CORPUS HGB CONC 33.8 g/dL (32.0-36.0); MEAN CORPUSCULAR HEMOGLOB 30.1 pg (26.0-34.0); MEAN CORPUSCULAR VOLUME 89.3 fL (80-100); MEAN PLATELET VOLUME 10.7 fL (9.2-13.0); PLATELET COUNT 161 10/3/uL (150-400); RED CELL COUNT 3.55 10/6/uL (4.7-6.1); WHITE BLOOD CELLS 10.8 10/3/uL (4.5-10.5)
[2016-07-31 05:02] LABS: EOSINOPHILS 3 %; EOSINOPHILS ABSOLUTE (CALC) 0.32 10/3/uL (0.0-0.53); LYMPHOCYTES 23 %; LYMPHOCYTES ABSOLUTE (CALC) 2.48 10/3/uL (0.67-4.30); MONOCYTES 9 %; MONOCYTES ABSOLUTE (CALC) 0.97 10/3/uL (0.21-1.20); NEUTROPHILS ABSOLUTE (CALC) 7.02 10/3/uL (2.02-8.40); SEGMENTED NEUTROPHIL (0) 65 %; TOTAL NUCLEATED CELLS 100
[2016-07-31 05:03] LABS: PLATELET ESTIMATE ADQ (ADEQUATE); RBC MORPHOLOGY NORM (NORMAL)
[2016-07-31 05:04] LABS: BUN (BLOOD UREA NITROGEN) 12 MG/DL (6-23); CALCIUM, SERUM 8.5 MG/DL (8.5-10.4); CHLORIDE, SERUM 113 MMOL/L (96-112); CO2 (CARBON DIOXIDE) 26 MMOL/L (24-34); CREATININE 1.03 MG/DL (0.70-1.30); GFR AFRICAN AMERICAN 83 ML/MIN (>=60); GFR NON AFRICAN AMERICAN 72 ML/MIN (>=60); POTASSIUM, SERUM 3.7 MMOL/L (3.5-5.3); SODIUM, SERUM 146 MMOL/L (135-148)
[2016-07-31 05:07] LABS: GLUCOSE, SERUM 115 MG/DL (60-99)
[2016-08-01 06:52] LABS: BASOPHILS 0.3 %; BASOPHILS ABSOLUTE 0.03 10/3/uL (0.0-0.16); EOSINOPHILS ABSOLUTE 0.41 10/3/uL (0.0-0.53); HEMATOCRIT 31.3 % (40.0-51.0); HEMOGLOBIN 10.4 g/dL (13.6-17.8); IMMATURE GRANULOCYTES 0.5 %; IMMATURE GRANULOCYTES ABSOLUTE 0.05 10/3/uL (0.0-0.11); LYMPHOCYTES 28.9 %; LYMPHOCYTES ABSOLUTE 2.98 10/3/uL (0.67-4.30); MEAN CORPUS HGB CONC 33.2 g/dL (32.0-36.0); MEAN CORPUSCULAR HEMOGLOB 29.8 pg (26.0-34.0); MEAN CORPUSCULAR VOLUME 89.7 fL (80-100); MEAN PLATELET VOLUME 11.1 fL (9.2-13.0); MONOCYTES ABSOLUTE 1.13 10/3/uL (0.21-1.20); NEUTROPHILS 55.3 %; RBC DISTRIBUTION WIDTH 16.7 % (12.0-16.0); RED CELL COUNT 3.49 10/6/uL (4.7-6.1); WHITE BLOOD CELLS 10.3 10/3/uL (4.5-10.5)
[2016-08-01 06:55] LABS: PLATELET COUNT 217 10/3/uL (150-400)
[2016-08-01 06:56] LABS: MANUAL DIFF NO %
[2016-08-01 07:13] LABS: BUN (BLOOD UREA NITROGEN) 9 MG/DL (6-23); CALCIUM, SERUM 8.4 MG/DL (8.5-10.4); CHLORIDE, SERUM 110 MMOL/L (96-112); CO2 (CARBON DIOXIDE) 24 MMOL/L (24-34); CREATININE 0.97 MG/DL (0.70-1.30); GFR AFRICAN AMERICAN 89 ML/MIN (>=60); GFR NON AFRICAN AMERICAN 77 ML/MIN (>=60); GLUCOSE, SERUM 98 MG/DL (60-99); PHOSPHORUS, SERUM 1.5 MG/DL (2.5-4.5); POTASSIUM, SERUM 3.9 MMOL/L (3.5-5.3); SODIUM, SERUM 144 MMOL/L (135-148)
[2016-08-01 13:28] LABS: HEMATOCRIT 29.9 % (40.0-51.0)
[2016-08-01 20:25] LABS: HEMATOCRIT 28.6 % (40.0-51.0); HEMOGLOBIN 9.7 g/dL (13.6-17.8)
[2016-08-02 06:08] LABS: BASOPHILS 0.3 %; BASOPHILS ABSOLUTE 0.03 10/3/uL (0.0-0.16); EOSINOPHILS 5.2 %; EOSINOPHILS ABSOLUTE 0.51 10/3/uL (0.0-0.53); HEMATOCRIT 28.5 % (40.0-51.0); HEMOGLOBIN 9.6 g/dL (13.6-17.8); IMMATURE GRANULOCYTES 0.2 %; IMMATURE GRANULOCYTES ABSOLUTE 0.02 10/3/uL (0.0-0.11); LYMPHOCYTES 28.9 %; LYMPHOCYTES ABSOLUTE 2.85 10/3/uL (0.67-4.30); MEAN CORPUS HGB CONC 33.7 g/dL (32.0-36.0); MEAN CORPUSCULAR VOLUME 89.1 fL (80-100); MEAN PLATELET VOLUME 10.8 fL (9.2-13.0); MONOCYTES 9.7 %; MONOCYTES ABSOLUTE 0.96 10/3/uL (0.21-1.20); NEUTROPHILS 55.7 %; PLATELET COUNT 234 10/3/uL (150-400); RBC DISTRIBUTION WIDTH 16.2 % (12.0-16.0); WHITE BLOOD CELLS 9.9 10/3/uL (4.5-10.5)
[2016-08-02 06:09] LABS: MANUAL DIFF NO %
[2016-08-02 06:14] LABS: BUN (BLOOD UREA NITROGEN) 8 MG/DL (6-23); CALCIUM, SERUM 8.1 MG/DL (8.5-10.4); CHLORIDE, SERUM 109 MMOL/L (96-112); CO2 (CARBON DIOXIDE) 24 MMOL/L (24-34); CREATININE 0.99 MG/DL (0.70-1.30); GFR AFRICAN AMERICAN 87 ML/MIN (>=60); GFR NON AFRICAN AMERICAN 75 ML/MIN (>=60); SODIUM, SERUM 140 MMOL/L (135-148)
[2016-08-02 06:15] LABS: GLUCOSE, SERUM 414 MG/DL (60-99); POTASSIUM, SERUM 5.6 MMOL/L (3.5-5.3)
[2016-08-02 07:00] LABS: BUN (BLOOD UREA NITROGEN) 8 MG/DL (6-23); CALCIUM, SERUM 8.2 MG/DL (8.5-10.4); CHLORIDE, SERUM 107 MMOL/L (96-112); CO2 (CARBON DIOXIDE) 24 MMOL/L (24-34); CREATININE 0.99 MG/DL (0.70-1.30); GFR AFRICAN AMERICAN 87 ML/MIN (>=60); GFR NON AFRICAN AMERICAN 75 ML/MIN (>=60); POTASSIUM, SERUM 5.2 MMOL/L (3.5-5.3); SODIUM, SERUM 140 MMOL/L (135-148)
[2016-08-02 07:01] LABS: GLUCOSE, SERUM 310 MG/DL (60-99)
[2016-08-02 12:24] LABS: HEMOGLOBIN 10.3 g/dL (13.6-17.8)
[2016-08-02 12:27] LABS: HEMATOCRIT 31.5 % (40.0-51.0)
[2016-08-02 20:42] LABS: HEMOGLOBIN 10.3 g/dL (13.6-17.8)
[2016-08-03 06:22] LABS: BASOPHILS 0.4 %; BASOPHILS ABSOLUTE 0.04 10/3/uL (0.0-0.16); EOSINOPHILS 4.4 %; EOSINOPHILS ABSOLUTE 0.45 10/3/uL (0.0-0.53); HEMATOCRIT 29.1 % (40.0-51.0); HEMOGLOBIN 9.8 g/dL (13.6-17.8); IMMATURE GRANULOCYTES 0.4 %; IMMATURE GRANULOCYTES ABSOLUTE 0.04 10/3/uL (0.0-0.11); LYMPHOCYTES 26.9 %; LYMPHOCYTES ABSOLUTE 2.72 10/3/uL (0.67-4.30); MEAN CORPUS HGB CONC 33.7 g/dL (32.0-36.0); MEAN CORPUSCULAR HEMOGLOB 30.2 pg (26.0-34.0); MEAN CORPUSCULAR VOLUME 89.8 fL (80-100); MEAN PLATELET VOLUME 10.6 fL (9.2-13.0); MONOCYTES 8.8 %; MONOCYTES ABSOLUTE 0.89 10/3/uL (0.21-1.20); NEUTROPHILS 59.1 %; NEUTROPHILS ABSOLUTE 5.99 10/3/uL (2.02-8.40); PLATELET COUNT 280 10/3/uL (150-400); RED CELL COUNT 3.24 10/6/uL (4.7-6.1); WHITE BLOOD CELLS 10.1 10/3/uL (4.5-10.5)
[2016-08-03 06:25] LABS: BUN (BLOOD UREA NITROGEN) 10 MG/DL (6-23); CALCIUM, SERUM 9.1 MG/DL (8.5-10.4); CHLORIDE, SERUM 112 MMOL/L (96-112); CO2 (CARBON DIOXIDE) 26 MMOL/L (24-34); CREATININE 0.98 MG/DL (0.70-1.30); GFR AFRICAN AMERICAN 88 ML/MIN (>=60); GFR NON AFRICAN AMERICAN 76 ML/MIN (>=60); SODIUM, SERUM 146 MMOL/L (135-148)
[2016-08-03 06:26] LABS: GLUCOSE, SERUM 99 MG/DL (60-99); PHOSPHORUS, SERUM 2.6 MG/DL (2.5-4.5); POTASSIUM, SERUM 4.1 MMOL/L (3.5-5.3)
[2016-08-03 06:29] LABS: MANUAL DIFF NO %
[2016-08-03 19:04] LABS: HEMATOCRIT 28.2 % (40.0-51.0); HEMOGLOBIN 9.5 g/dL (13.6-17.8)
[2016-08-04 01:39] LABS: HEMATOCRIT 29.1 % (40.0-51.0); HEMOGLOBIN 9.7 g/dL (13.6-17.8)
[2016-08-04 10:33] LABS: HEMATOCRIT 30.3 % (40.0-51.0); HEMOGLOBIN 9.5 g/dL (13.6-17.8)
[2016-08-04 17:39] LABS: HEMATOCRIT 30.1 % (40.0-51.0)
[2016-08-05] MEDS ORDERED: PERCOCET 7.5/321 TAB PO (13:39)
== END 2016-08-05 14:52 | DRG 329 ==
LOC: ER 15:49 → 6NO 22:08 → SDC/OF 07-23 15:13 → 5SO 07-23 16:43 → MIC 07-28 05:52 → 4SO 07-31 12:29
PROVIDERS: Anesthesiology; Hospitalist; Internal Medicine Pulmonary Disease; Surgery
PROC: 0DNH0ZZ Release Cecum, Open Approach (ICD-10-PCS; 2016-07-23)
PROC: 0DJD4ZZ Inspection of Lower Intestinal Tract, Percutaneous Endoscopic Approach (ICD-10-PCS; 2016-07-23)
PROC: 0DBK0ZZ Excision of Ascending Colon, Open Approach (ICD-10-PCS; principal; 2016-07-23 11:00)
PROC: 5A1945Z Respiratory Ventilation, 24-96 Consecutive Hours (ICD-10-PCS; 2016-07-28)
PROC: 0BH17EZ Insertion of Endotracheal Airway into Trachea, Via Natural or Artificial Opening (ICD-10-PCS; 2016-07-28)
PROC: 5A12012 Performance of Cardiac Output, Single, Manual (ICD-10-PCS; 2016-07-28)
PROC: 30233N1 Transfusion of Nonautologous Red Blood Cells into Peripheral Vein, Percutaneous Approach (ICD-10-PCS; 2016-07-28)
DX: K35.3 Acute appendicitis with localized peritonitis (principal); I46.8 Cardiac arrest due to other underlying condition; J96.01 Acute respiratory failure with hypoxia; J44.9 Chronic obstructive pulmonary disease, unspecified; E44.0 Moderate protein-calorie malnutrition; K92.1 Melena; D62 Acute posthemorrhagic anemia; J98.11 Atelectasis; Z85.72 Personal history of non-Hodgkin lymphomas; I44.7 Left bundle-branch block, unspecified; K35.89 Other acute appendicitis; K66.0 Peritoneal adhesions (postprocedural) (postinfection); B18.2 Chronic viral hepatitis C; Z85.028 Personal history of other malignant neoplasm of stomach; Z87.891 Personal history of nicotine dependence; F10.21 Alcohol dependence, in remission
CPT/HCPCS: 31720; 36415; 36569; 36600; 71010; 74000; 74177; 78278; 80048; 80053; 80076; 81001; 82330; 82533; 82550; 82553; 82607; 82746; 82803; 82805; 82947; 82962; 83605; 83690; 83735; 84100; 84132; 84145; 84295; 84443; 84484; 85014; 85018; 85025; 85610; 85730; 86850; 86900; 86901; 86920; 87641; 88307; 92950; 93005; 93306; 94002; 94003; 94640; 94660; 97116-GP; 97161-GP; 97164-GP; 97530-GP; 99285; A9270-GY; A9560; C1751; C1894; C9113; G8978-CK-GP; G8979-CK-GP; G8980-CJ-GP; J1885; J1940; J2270; J2405; J2543; J2710; J2765; J3010; J3411; P9016; P9045; P9059; Q9967